=== PATIENT | male | born 1980 | race Caucasian/White ===

== ENCOUNTER 2017-06-15 23:09 | Emergency (ER) | payer OTHER ==
[~2017-06-15] VITALS: Ht 162.6 cm; Wt 93.0 kg
[2017-06-15 23:11] VITALS: Ht 162.6 cm; Wt 93.0 kg
--- NOTE | 2017-06-16 00:20 | ERA ---
ER Documentation Chief Complaint Date/Time DATE: 06/16/17 TIME: 00:17 Chief Complaint laceration right hand (BRIAN COTE PA-C) HPI Otherwise healthy 37-year-old male presenting one hour status post laceration to the left hand. The patient's hand slid down a metal wire fence. Patient did not feel anything at the time of injury. [place] the blood and looked down he was bleeding. Denies diabetes. Denies numbness, tingling, loss of motion. Has not taken any medication to relieve the symptoms. Patient has no other complaints and describes no other associated manifestations. Nursing notes have been reviewed and are consistent with history given. (BRIAN COTE PA-C) ROS All systems reviewed and are negative except as per history of present illness. (BRIAN COTE PA-C) Medications Home Meds Active Scripts Cephalexin* (Keflex*) 500 Mg Capsule, 500 MG PO QID for 5 Days, CAP Prov:BRIAN COTE PA-C 06/16/17 Allergies Allergies: Coded Allergies: No Known Allergy (Unverified , 06/15/17) PMhx/Soc History of Surgery: No Anesthesia Reaction: No Hx Neurological Disorder: No Hx Respiratory Disorders: No Hx Cardiac Disorders: No Hx Psychiatric Problems: No Hx Miscellaneous Medical Probl: No Hx Alcohol Use: No Hx Substance Use: No Hx Tobacco Use: No Smoking Status: Never smoker (BRIAN COTE PA-C) Physical Exam Physical Exam Const: Well-appearing 37-year-old male no acute distress. Head: Atraumatic Eyes: Normal Conjunctiva ENT: Normal External Ears, Nose and Mouth. Neck: Full range of motion..~ No meningismus. Resp: Clear to auscultation bilaterally Cardio: Regular rate and rhythm, no murmurs. Cap refill less than 2 seconds. Abd: Soft, non tender, non distended. Normal bowel sounds Skin: Deep laceration along the left hyperthenar extending into the fifth digit not passing the PIP. Back: No midline or flank tenderness Ext: As noted in skin exam. Range of motion intact.No cyanosis, or edema Neur: Awake and alertNV intact. Psych: Normal Mood and Affect (BRIAN COET PA-C) Results 24 hrs Current Medications Medications (Trade) Dose Ordered Sig/Anabelle Route PRN Reason Start Time Stop Time Status Last Admin Dose Admin Lidocaine (Xylocaine 2% (Mdv) 20 ml) 20 ml ONCE ONCE INJ 06/16/17 00:30 06/16/17 00:31 DC Acetaminophen/ Hydrocodone Bitart ([place] (10/325)) 1 tab ONCE ONCE PO 06/16/17 02:00 06/16/17 02:01 DC 06/16/17 01:58 Ondansetron HCl 8 mg 8 mg ONCE STAT ODT 06/16/17 01:49 06/16/17 01:53 DC 06/16/17 01:57 Cefazolin Sodium/ Dextrose (Ancef 2 Gm/50 ml (Pmx)) 50 ml @ 100 mls/hr ONCE ONCE IVPB 06/16/17 02:30 06/16/17 02:30 DC Cefazolin Sodium (Ancef) 1 gm ONCE ONCE IM 06/16/17 02:30 06/16/17 02:31 DC 06/16/17 02:24 Diphtheria/ Tetanus/Acell Pertussis (Adacel) 0.5 ml ONCE ONCE IM* 06/16/17 02:30 06/16/17 02:31 DC 06/16/17 02:40 (MAHSA WHITING DO) Procedures/MDM There is 7-year-old male presenting one hour status post laceration as described in history and physical examination. Patient is right-handed. Works at the [employer]. No manual labor. 10 mL of 2% lidocaine without epi was used to anesthetize the area. 20 simple interrupted sutures placed with 3-0 nylon. Neurovascularly intact after procedure. My attending Dr. Whiting evaluated the patient himself as well. X-ray was obtained and showed no foreign bodies. Tdap given. 1 g of Ancef given. Antibiotics given at discharge. I have spoke with the patient regarding their condition and future management. They have verbally responded that they understand their status and treatment plan. The patients vitals are stable, and their current condition is appropriate for discharge. The patient will be given discharge instructions with return precautions. Discharge medications: Keflex. (BRIAN COTE PA-C) I saw this 37 year old male with an impressive hand laceration. Luckily the laceration was diagonoal and on close inspection under high powered lamp the cut did not extend past the fat pad of the hand. No tendons visible with normal motor, sensory, and vascular exam. Excellently repaired by [facility]. (MAHSA WHITING DO) Departure Diagnosis: Primary Impression: Laceration of hand Condition: Stable Additional Instructions: You were seen in the emergency department for your laceration which has been closed. Your wound has been cleaned and covered with antibiotic ointment. Please keep this dressing on for 12 hours. After 12 hours take the dressing down and gently clean the wound with ONLY soap and water. If you were given antibiotics, complete the course of treatment as prescribed. Look for signs of infection such as increasing redness, swelling, pain or drainage of pus (yellow/ green fluid). If you see signs of infection, please return to the emergency department immediately. If there are no signs of infection, cover your wound with antibiotic ointment and reapply a dressing. You will form a scar. To keep from scarring too dark, keep your wound covered and out of the sun for the next 6-12 months. Consider using OTC anti-scar creams such as Mederma. Return to the ED for a wound check in 2 days and again for suture removal in 10-14 days. BRIAN COTE PA-C Jun 16, 2017 00:20 MAHSA WHITING DO Jun 26, 2017 21:52
[2017-06-16] MEDS ORDERED: LIDOCAINE 2% (MDV) 20 ML INJ INJ ONE (00:30)
[2017-06-16] MEDS ORDERED: ONDANSETRON (ODT) 4 MG TAB ODT STA (01:49)
[2017-06-16] MEDS ORDERED: HYDROCODONE/APAP (10/325) TAB PO ONE (02:00)
[2017-06-16] MEDS ORDERED: CEFAZOLIN 1 GM INJ IM ONE (02:30)
[2017-06-16] MEDS ORDERED: CEFAZOLIN 2 GM/50 ML (PMX) 50 ML IVPB ONE (02:30)
[2017-06-16] MEDS ORDERED: DIPHTH/TET/ACEL PERTUSS (ADULT) 0.5 ML VIAL IM* ONE (02:30)
[2017-06-16] MEDS ORDERED: CEPH-443 PO (02:32)
--- NOTE | 2017-06-16 02:43 | RADRPT ---
PROCEDURE: XR Hand. CLINICAL INDICATION: Right hand laceration with reference marker directed towards the fifth finger. TECHNIQUE: AP, oblique and lateral views of the right hand were obtained. COMPARISON: No prior studies are available for comparison. FINDINGS: There is normal mineralization. No acute fracture or dislocation is seen. There are no significant degenerative changes. There is no significant soft tissue swelling. No evident retained radiopaque foreign materials in th e soft tissues of the right hand. IMPRESSION: No acute fracture or retained radiopaque foreign material in the soft tissues. RPTAT: [facility] Physician Wilmer Date Time Electronically viewed and signed by Physician Wilmer on 06/16/2017 02:43 RS/
[2017-06-16 02:57] VITALS: BP 110/64; PULSE 66; RESP 20
== END 2017-06-16 03:00 | disposition home or self-care (01) ==
LOC: FTE 23:09
DX: S61.411A Laceration without foreign body of right hand, initial encounter (principal); W26.8XXA Contact with other sharp object(s), not elsewhere classified, initial encounter; Y92.9 Unspecified place or not applicable
CPT/HCPCS: 12001; 73130; 90471; 90715; 96372; 99284; J0690